=== PATIENT | male | born 2005 ===

== ENCOUNTER 2024-07-19 08:29 | Emergency (ER) | payer SELFPAY ==
[2024-07-19 09:05] LABS: #Basophils 0.05 10x3/uL (0.0-0.2); %Basophils 1.5 % (0.0-1.0); %Lymphocytes 47.4 % (21.0-51.0); %Neutrophils 40.1 % (42.0-75.0); Hematocrit 42.6 % (42.0-52.0); Hemoglobin 13.5 g/dL (14.0-18.0); Mean Corpuscular HGB CONC 31.7 g/dL (32.0-36.0); Mean Corpuscular Hemoglobin 29.2 pg (27.0-31.0); Mean Corpuscular Volume 92.2 fL (78.0-98.0); Mean Platelet Volume 11.2 fL (7.4-10.4); Platelet Count 136 10x3/uL (130-400); RBC Distribution Width 11.4 % (11.5-14.5); Red Blood Cell (RBC) Count 4.62 mill/uL (4.70-6.10)
[2024-07-19 09:15] LABS: ALT (SGPT) 18 U/L (8-55); AST (SGOT) 19 U/L (5-34); Albumin 4.1 g/dL (3.5-5.0); Alkaline Phosphatase 86 U/L (40-110); Anion Gap 13 mmol/L (10-20); BUN (Urea Nitrogen) 14 mg/dL (8.9-20.6); Bilirubin, Total 0.7 mg/dL (0.2-1.2); Calc. Creatinine Clearance 0 mL/min (70-130); Carbon Dioxide 23 mmol/L (22-29); Chloride 105 mmol/L (98-107); Estimated GFR 120; Glucose 81 mg/dL (70-105); Potassium 4.3 mmol/L (3.5-5.1); Protein, Total 7.1 g/dL (6.0-8.3); Sodium 137 mmol/L (136-145)
[2024-07-19 09:21] LABS: Troponin I 0.012 ng/mL (< 0.028)
== END 2024-07-19 11:31 ==
LOC: ERS 08:29 → EEVIPCON 08:29 → ERS 11:31
DX: R07.9 Chest pain, unspecified (principal); R06.02 Shortness of breath; I10 Essential (primary) hypertension
CPT/HCPCS: 36415; 71045; 80053; 83880; 84484; 85025; 85379; 93005; 94760